=== PATIENT | male | born 1965 | race Caucasian/White ===

== ENCOUNTER 2018-02-27 12:51 | Emergency (ER) | payer BC ==
[~2018-02-27] VITALS: Ht 182.9 cm; Wt 120.0 kg
[~2018-02-27 12:51] MED LIST: LORT5TAB PO; Z.0.NO CURRENT MEDS
[2018-02-27 13:20] VITALS: BP 118/71; PULSE 97; RESP 17; TEMP 98.3; O2SAT 100
--- NOTE | 2018-02-27 14:49 | PD ---
HPI Chief Complaint: Fall Time Seen by Provider: 14:38 Travel History International Travel<30 days: No Contact w/Intl Traveler<30days: No Traveled to known affect area: No History of Present Illness HPI 52-year-old male presents emergency department status post fall from the lower rung of the ladder 4 days ago. He now complains of left ankle and knee pain. He complains of discomfort in the left shoulder as well, but has full motion of the left arm. Patient has difficulty bearing weight on the left leg secondary to pain mainly in the knee. He has been taking [id number] ibuprofen without improvement. He denies back pain, chest pain, abdominal pain , or thoracic pain. He denies hitting his head or loss of consciousness. He has no neck pain. Pain is currently 8 out of 10 and worse with movement in the left lower leg. Most pain localized to the knee. No known drug allergies. PFSH Past Medical History Hx Anticoagulant Therapy: Yes (Coumadin) Atrial Fibrillation: Yes Cardiovascular Problems: Yes (A.FIB) Gout: Yes Hypertension: Yes Respiratory: Yes (COPD) Tetanus Vaccination: Unknown Influenza Vaccination: No ?: Not Past Surgical History Surgical History: No Previous Surgery Social History Alcohol Use: Yes Tobacco Use: No Substance Use: No Allergies-Medications (Allergen,Severity, Reaction): Coded Allergies: No Known Allergies (Verified Allergy, Mild, 02/27/18) Reported Meds & Prescriptions Reported Meds & Active Scripts Active Hydrocodone-Acetaminophen 5-325 mg Tab 1 Tab PO Q6H PRN Lortab 5/500 (Acetaminophen/Hydrocodone Bitart) 5 Mg/500 Mg Tab 1 Tab PO QIDPRN FOR PAIN Reported No Current Meds (Miscellaneous Medication) Misc Review of Systems Except as stated in HPI: all other systems reviewed are Neg General / Constitutional: No: Fever Eyes: No: Visual changes HENT: No: Headaches Cardiovascular: No: Chest Pain or Discomfort Respiratory: No: Shortness of Breath Gastrointestinal: No: Abdominal Pain Genitourinary: No: Dysuria Musculoskeletal: Positive: Myalgias, Arthralgias, Limited ROM, Pain Skin: No Rash Neurologic: No: Weakness Psychiatric: No: Depression Endocrine: No: Polydipsia Hematologic/Lymphatic: No: Easy Bruising Physical Exam Narrative GENERAL: Patient appears in mild to moderate distress per SKIN: Warm and dry. Normal color. Normal turgor HEAD: Atraumatic. Normocephalic. EYES: Pupils equal and round. No scleral icterus. No injection or drainage. ENT: No nasal bleeding or discharge. Mucous membranes pink and moist. NECK: Trachea midline. No JVD. CARDIOVASCULAR: Regular rate and rhythm. RESPIRATORY: No accessory muscle use. Clear to auscultation. Breath sounds equal bilaterally. GASTROINTESTINAL: Abdomen soft, non-tender, nondistended. Hepatic and splenic margins not palpable. MUSCULOSKELETAL: Extremities without clubbing, cyanosis, or edema. No obvious deformities. Patient is obvious effusion to the left knee with limited range of motion secondary to pain. Patient also complains of pain in the left ankle which appears swollen as well. His pain is nonspecific in the ankle and knee. Exam however is limited secondary to patient's discomfort. Left shoulder has full range of motion without pain. NEUROLOGICAL: Awake and alert. No obvious cranial nerve deficits. Motor grossly within normal limits. Five out of 5 muscle strength in the arms and legs. Normal speech. PSYCHIATRIC: Appropriate mood and affect; insight and judgment normal. Data Data Last Documented VS Vital Signs Date Time Temp Pulse Resp B/P (MAP) Pulse Ox O2 Delivery O2 Flow Rate FiO2 02/27/18 13:20 98.3 97 17 118/71 (87) 100 Orders Orders Ankle, Complete ([id number]) (02/27/18 14:43) Knee, Complete (4vws) (02/27/18 14:43) Ice/Cold Pack (02/27/18 14:43) Splint Or Brace Apply/Monitor (02/27/18 15:50) Splint Or Brace Apply/Monitor (02/27/18 15:50) Crutches (02/27/18 15:50) Acetamin-Hydrocod 325-5 Mg ([place] 5-325 (02/27/18 16:00) MDM Medical Decision Making Medical Screen Exam Complete: Yes Emergency Medical Condition: Yes Differential Diagnosis Fall from ladder. Left ankle sprain. Left knee sprain. Possible fracture. Narrative Course Patient is medically stable. X-rays of the left ankle and knee are ordered. Patient is given Lortab 5/325 p.o. now per X-rays show no acute fracture of either the ankle or the knee, however there is swelling over the ankle and rather large effusion over the left knee. Patient will be placed in a knee immobilizer and ankle stirrup splint for comfort. He is given crutches for ambulation. Patient should ice both knee and ankle as much as possible. Recommend follow-up with Dr. Johnson if symptoms persist. Patient is given prescription for Lortab 5/325 1 every 6 hours as needed #12 . Diagnosis Primary Impression: Fall from ladder Qualified Codes: W11.XXXA - Fall on and from ladder, initial encounter Additional Impressions: Left knee sprain Qualified Codes: S83.92XA - Sprain of unspecified site of left knee, initial encounter Left ankle sprain Qualified Codes: S93.402A - Sprain of unspecified ligament of left ankle, initial encounter Referrals: Boyd Johnson MD Patient Instructions: Ankle Sprain (ED), Ankle Sprain Exercises (GEN), General Instructions, Knee Immobilizer (ED) Additional Instructions: X-rays show no acute fracture of either the ankle or the knee, however there is swelling over the ankle and rather large effusion over the left knee. Patient will be placed in a knee immobilizer and ankle stirrup splint for comfort. He is given crutches for ambulation. Patient should ice both knee and ankle as much as possible. Recommend follow-up with Dr. Johnson if symptoms persist. Patient is given prescription for Lortab 5/325 1 every 6 hours as needed #12 . Med/Other Pt SpecificInfo: Prescription(s) given Scripts Hydrocodone-Acetaminophen (Hydrocodone-Acetaminophen) 5-325 mg Tab 1 TAB PO Q6H Y for PAIN, #12 TAB 0 Refills Prov: Pilar Jain MD 02/27/18 Disposition: 01 DISCHARGE HOME Condition: Stable Mark Bradshaw February 27, 2018 14:49
--- NOTE | 2018-02-27 14:57 | PD ---
Physical Exam Date Seen by Provider: February 27, 2018 Narrative Patient presents for the evaluation of left knee injury. Data Data Last Documented VS Vital Signs Date Time Temp Pulse Resp B/P (MAP) Pulse Ox O2 Delivery O2 Flow Rate FiO2 02/27/18 13:20 98.3 97 17 118/71 (87) 100 Orders Orders Ankle, Complete ([id number]) (02/27/18 14:43) Knee, Complete (4vws) (02/27/18 14:43) Ice/Cold Pack (02/27/18 14:43) MDM Supervised Visit with LENA: Yes Narrative Course I, Dr. Jain, have reviewed the advance practice practitioner's documentation and am in agreement, met with the patient face to face, made the diagnosis, and the medical decision making was done by me. *My assessment and Findings: The patient does have a left knee effusion with associated tenderness. Please see Rm Bradshaw PA-C's note for results of laboratory and radiographic evaluation, ED course, final diagnosis and disposition Condition: Stable Pilar Jain MD February 27, 2018 14:57
--- NOTE | 2018-02-27 15:39 | RADRPT ---
EXAM DATE/TIME: 02/27/2018 15:03 [facility] COMPARISON: No previous studies available for comparison. INDICATIONS : Pt fell off ladder on Friday02/23/18 MEDICAL HISTORY : None. SURGICAL HISTORY : None. ENCOUNTER: Initial ACUITY: 4 - 6 days PAIN SCORE: 10/10 LOCATION: Left Knee FINDINGS: No acute fracture or dislocation. Mild osteoarthritis. Moderate-sized knee joint effusion. CONCLUSION: 1. No acute fracture. Moderate-sized knee joint effusion. Osbaldo Cooper MD on February 27, 2018 at 15:33 Board Certified Radiologist. This report was verified electronically.
--- NOTE | 2018-02-27 15:42 | RADRPT ---
EXAM DATE/TIME: 02/27/2018 15:14 [facility] COMPARISON: No previous studies available for comparison. INDICATIONS : Fell off a ladder on Friday02/23/18 MEDICAL HISTORY : None. SURGICAL HISTORY : None. ENCOUNTER: Initial ACUITY: 4 - 6 days PAIN SCORE: 0/10 LOCATION: Left Ankle FINDINGS: Three view exam was performed of the left ankle. The bony structures are in normal alignment. No ev idence of fracture, dislocation. The ankle mortise is intact. No radiopaque foreign bodies are seen. Bony mineralization is normal. CONCLUSION: 1. Soft tissue swelling. No acute bony abnormality. Osbaldo Cooper MD on February 27, 2018 at 15:37 Board Certified Radiologist. This report was verified electronically.
[2018-02-27] MEDS ORDERED: HYDR-3516 PO (15:53)
[2018-02-27] MEDS ORDERED: ACETAMINOPHEN/HYDROcodone 325 MG/5 MG TAB PO ONE (16:00)
== END 2018-02-27 17:09 | disposition home or self-care (01) ==
LOC: NEPD 12:51
DX: S83.92XA Sprain of unspecified site of left knee, initial encounter (principal); S93.402A Sprain of unspecified ligament of left ankle, initial encounter; W11.XXXA Fall on and from ladder, initial encounter
CPT/HCPCS: 73564; 73610; 99283; E0113; L1830; L1906

== ENCOUNTER 2018-09-15 17:17 | Inpatient (IN) ==
--- NOTE | 2018-09-15 20:37 | ED ---
HPI General Chief Complaint: Alcohol Stated Complaint: [place] Act Time Seen by Provider: 09/15/18 20:18 Source: patient and police Mode of arrival: ambulatory Limitations: no limitations History of Present Illness HPI narrative: 53-year-old male was brought in by Police Department for medical clearance from [facility]. Patient has history of alcohol abuse. Patient was March[place] acted and brought to [facility] recently after threatening family members. Patient was brought from [facility] to emergency room for medical clearance. Patient has history of atrial fibrillation and on Coumadin. Patient states that he has been taking his medications as directed except 2 days when he was in custodial recently. Patient states that his INR has been under control. Patient denies any headache. Patient denies any chest pain or shortness of breath. Patient denies abdominal pain. Patient denies any focal weakness or numbness of the extremity. Patient denies any agitation or alcohol withdrawal symptoms. Patient denies any illicit drug abuse. Patient states this alcohol drinks was several days ago. MD complaint: Reports medical clearance for detox facility Last Drank: Days (ago) Chronic alcohol use: Yes Recent trauma: No Associated symptoms: Reports denies other symptoms Treatments prior to arrival: Reports none Related Data Home Medications Medication Instructions Recorded Confirmed carvedilol [Coreg] 3.125 mg PO BID 09/15/18 09/16/18 diltiazem HCl 120 mg PO DAILY 09/15/18 09/16/18 warfarin [Coumadin] 0.3 mg/kg PO Q OTHER DAY 09/15/18 09/16/18 Allergies Allergy/AdvReac Type Severity Reaction Status Date / Time No Known Allergies Allergy Mild Uncoded 02/27/18 14:44 Review of Systems ROS: all other systems reviewed are negative PMFSH History History Provided By: Patient and Law Enforcement Medical History Medical History Afib (Acute) Alcohol abuse (Acute) Surgical History Surgical History No history of previous surgery (Acute) Family History Family History Other Family history normal Social History Social History Substance History: Active Abuse Second Hand Smoke Exposure: No Smoking Status: Never smoker How Often Do You Have a Drink Containing Alcohol: 2 to 4 times a month Recent Travel in [facility] within the Last 8 Weeks: No Recent Out of Country Travel within the Last 8 Weeks: No Exam Narrative Exam Narrative: GENERAL: Well-nourished, well-developed patient. SKIN: Focused skin assessment warm/dry. HEAD: Normocephalic. EYES: No scleral icterus. No injection or drainage. NECK: Supple, trachea midline. No JVD or lymphadenopathy. CARDIOVASCULAR: Regular rate and rhythm without murmurs, gallops, or rubs. RESPIRATORY: Breath sounds equal bilaterally. No accessory muscle use. GASTROINTESTINAL: Abdomen soft, non-tender, nondistended. MUSCULOSKELETAL: No cyanosis, or edema. BACK: Nontender without obvious deformity. No CVA tenderness. Neurologic exam normal. Course Initial Documented Vital Signs Temperature 98 F 09/15/18 17:27 Pulse Rate 100 H 09/15/18 17:27 Respiratory Rate 18 09/15/18 17:27 Blood Pressure 127/85 09/15/18 17:27 Pulse Oximetry 98 09/15/18 17:27 Last Documented Vital Signs Temperature 98 F 09/15/18 17:27 Pulse Rate 115 H 09/16/18 05:05 Respiratory Rate 16 09/16/18 05:05 Blood Pressure 105/56 L 09/16/18 05:05 Pulse Oximetry 98 09/16/18 05:05 Sign Out Sign Out Data: Patient Sign Out occurred on 09/16/18 at 01:36. Patient's care was discussed, and care was transferred from James Jackson to Monika Greene MD. Sign Out Comment: Patient is under exparte order. Psychiatric team contacted and will arrange for patient to go to detox facility. Patient need to be medically clear. Patient has history of A. fib with RVR. Patient has not had his dictation for the past several days. Coumadin, carvedilol, diltiazem IV will be given. Cardizem 10 mg IV given to control the A. fib with RVR. Last updated by James Jackson MD at 09/16/18 01:12 Post-Handoff Eval: The patient's case was checked out to me by Dr. Jackson at the conclusion of his shift. Please see his initial history and physical. The patient presented under an [facility] for court ordered detox. While awaiting evaluation and placement by the psychiatric screener patient became tachycardic. The patient has a history of atrial fibrillation. The patient's EKG revealed A. fib with RVR. The patient had missed his dose of Coumadin and his rate controlling medicines throughout the day today. During the course of the patient's emergency department visit, the patient was placed on a environmental monitoring specialist with oximetry and frequent blood pressure monitoring. The patient had IV access obtained and blood work sent for analysis. The patient was initially provided 10 mg of Cardizem was administered x1 and repeated x1 with minimal improvement in the patient's heart rate, Coreg 6.25 mg p.o. was administered, Coumadin 5 mg p.o. was given. As the patient continued to be in A. fib with RVR, Cardizem as a drip was started. The patient's diagnostic studies are remarkable for a white count of 7.2, hemoglobin 13.5, platelets 111 with 13.2 monocytes, PT 16.2, INR 1.6, PTT 31.7, chemistry is remarkable for a GFR of 80, glucose 111, total bilirubin 3.7, AST 80, alk phos 139, cardiac enzymes within normal limits, TSH within normal limits , alcohol level less than 3. The patient's case including history, pertinent physical examination findings, and laboratory studies were discussed with Dr. Carrasco. It was agreed that the patient would be admitted to the hospitalist service. The patient's results were discussed with the patient, including the plan of care. I explained that further testing and/ or monitoring is indicated based on the patient's history, examination, and/ or laboratory findings. Therefore, I recommended admission for additional evaluation. The patient expressed understanding and was agreeable with this plan. The patient was admitted to the hospital in guarded condition and sent to a bed under the care of the service. Medical Decision Making [facility] Narrative Medical decision making narrative: 53-year-old male with history of atrial fibrillation and alcohol dependence. Patient was sent here from [facility] for medical clearance. Patient has stable vital signs. No complaint. Patient is medically cleared. Medical Screen Exam Complete: Yes Emergency Medical Condition: Yes Lab Data Result diagrams: 09/16/18 04:50 09/16/18 04:50 Lab Results 09/15/18 09/15/18 09/15/18 Range/Units 21:15 21:15 21:15 WBC 7.2 (4.0-11.0) th/mm3 RBC 4.24 L (4.50-5.90) mil/mm3 Hgb 13.5 (13.0-17.0) gm/dL Hct 39.4 (39.0-51.0) % MCV 93.0 (80.0-100.0) fL MCH 31.9 (27.0-34.0) pg MCHC 34.3 (32.0-36.0) % RDW 16.0 (11.6-17.2) % Plt Count 111 L (150-450) th/mm3 MPV 8.6 (7.0-11.0) fL Neut % (Auto) 51.6 (16.0-70.0) % Lymph % (Auto) 32.0 (9.0-44.0) % [place] % (Auto) 13.2 H (0.0-8.0) % Eos % (Auto) 2.1 (0.0-4.0) % Baso % (Auto) 1.1 (0.0-2.0) % Neut # (Auto) 3.7 (1.8-7.7) th/mm3 Lymph # (Auto) 2.3 (1.0-4.8) th/mm3 [place] # (Auto) 0.9 (0.0-0.9) th/mm3 Eos # (Auto) 0.1 (0.0-0.4) th/mm3 Baso # (Auto) 0.1 (0.0-0.2) th/mm3 WBC Differential . Differential Comment Auto diff final PT 16.2 H (9.8-11.6) sec INR 1.6 Ratio APTT 31.7 (23.4-31.7) sec Sodium 138 (136-145) meq/L Potassium 4.3 (3.5-5.1) meq/L Chloride 107 (98-107) meq/L Carbon Dioxide 24.9 (21.0-32.0) meq/L Anion Gap 6 (5-15) meq/L BUN 12 (7-18) mg/dL Creatinine 0.98 (0.60-1.30) mg/dL Estimated GFR 80 L (>89) mL/min Random Glucose 111 H (74-106) mg/dL Calcium 8.8 (8.5-10.1) mg/dL Magnesium 1.6 (1.5-2.5) mg/dL Total Bilirubin 3.7 H (0.2-1.0) mg/dL AST 80 H (15-37) U/L ALT 41 (12-78) U/L Alkaline Phosphatase 139 H (45-117) U/L Total Creatine Kinase (39-308) U/L CK-MB (CK-2) (0.5-3.6) ng/mL Troponin I (0.02-0.05) ng/mL B-Natriuretic Peptide (0-100) pg/mL Total Protein 8.2 (6.4-8.2) g/dL Albumin 3.0 L (3.4-5.0) g/dL TSH 3.320 (0.358-3.740) uIU/mL Serum Alcohol Less than 3 (0-5) mg/dL 09/16/18 09/16/18 09/16/18 Range/Units 04:50 04:50 04:50 WBC 6.3 (4.0-11.0) th/mm3 RBC 4.14 L (4.50-5.90) mil/mm3 Hgb 13.3 (13.0-17.0) gm/dL Hct 38.3 L (39.0-51.0) % MCV 92.6 (80.0-100.0) fL MCH 32.1 (27.0-34.0) pg MCHC 34.7 (32.0-36.0) % RDW 15.7 (11.6-17.2) % Plt Count 104 L (150-450) th/mm3 MPV 9.5 (7.0-11.0) fL Neut % (Auto) 48.2 (16.0-70.0) % Lymph % (Auto) 38.4 (9.0-44.0) % [place] % (Auto) 10.5 H (0.0-8.0) % Eos % (Auto) 2.2 (0.0-4.0) % Baso % (Auto) 0.7 (0.0-2.0) % Neut # (Auto) 3.0 (1.8-7.7) th/mm3 Lymph # (Auto) 2.4 (1.0-4.8) th/mm3 [place] # (Auto) 0.7 (0.0-0.9) th/mm3 Eos # (Auto) 0.1 (0.0-0.4) th/mm3 Baso # (Auto) 0.0 (0.0-0.2) th/mm3 WBC Differential . Differential Comment Auto diff final PT (9.8-11.6) sec INR Ratio APTT (23.4-31.7) sec Sodium 140 (136-145) meq/L Potassium 3.8 (3.5-5.1) meq/L Chloride 106 (98-107) meq/L Carbon Dioxide 24.8 (21.0-32.0) meq/L Anion Gap 9 (5-15) meq/L BUN 11 (7-18) mg/dL Creatinine 0.89 (0.60-1.30) mg/dL Estimated GFR 89 (>89) mL/min Random Glucose 86 (74-106) mg/dL Calcium 8.9 (8.5-10.1) mg/dL Magnesium (1.5-2.5) mg/dL Total Bilirubin 3.6 H (0.2-1.0) mg/dL AST 74 H (15-37) U/L ALT 37 (12-78) U/L Alkaline Phosphatase 128 H (45-117) U/L Total Creatine Kinase 307 (39-308) U/L CK-MB (CK-2) 7.9 H (0.5-3.6) ng/mL Troponin I Less than 0.02 L (0.02-0.05) ng/mL B-Natriuretic Peptide 173 H (0-100) pg/mL Total Protein 8.0 (6.4-8.2) g/dL Albumin 2.8 L (3.4-5.0) g/dL TSH (0.358-3.740) uIU/mL Serum Alcohol (0-5) mg/dL Discharge Plan Discharge Disposition Patient Disposition: 30 Still Patient Discharge Details Diagnosis: Encounter for medical clearance for patient hold, Atrial fibrillation with RVR Physicians Team ED Provider: Monika Greene Primary Care Provider: Estela Preciado Attending Provider: Diogenes Esparza Discharge Interventions Interventions: Vital Signs Last Done: 09/16/18 00:50 Status ED Status: Admitted Patient
[2018-09-15 21:25] LABS: Baso # (Auto) 0.1 th/mm3 (0.0-0.2); Baso % (Auto) 1.1 % (0.0-2.0); Eos # (Auto) 0.1 th/mm3 (0.0-0.4); Eos % (Auto) 2.1 % (0.0-4.0); Hematocrit 39.4 % (39.0-51.0); Hemoglobin 13.5 gm/dL (13.0-17.0); Lymph # (Auto) 2.3 th/mm3 (1.0-4.8); Mean Corpuscular HGB Conc 34.3 % (32.0-36.0); Mean Corpuscular Hemoglobin 31.9 pg (27.0-34.0); Mean Platelet Volume 8.6 fL (7.0-11.0); Mono # (Auto) 0.9 th/mm3 (0.0-0.9); Mono % (Auto) 13.2 % (0.0-8.0); Neut # (Auto) 3.7 th/mm3 (1.8-7.7); Neut % (Auto) 51.6 % (16.0-70.0); Platelet Count 111 th/mm3 (150-450); Red Blood Count 4.24 mil/mm3 (4.50-5.90); White Blood Count 7.2 th/mm3 (4.0-11.0)
[2018-09-15 21:36] LABS: Activated Partial Thrombo Time 31.7 sec (23.4-31.7); INR 1.6 Ratio; Prothrombin Time 16.2 sec (9.8-11.6)
[2018-09-15 21:39] LABS: Alanine Aminotransferase 41 U/L (12-78); Anion Gap 6 meq/L (5-15); Aspartate Aminotransferase 80 U/L (15-37); Blood Urea Nitrogen 12 mg/dL (7-18); Calcium 8.8 mg/dL (8.5-10.1); Carbon Dioxide 24.9 meq/L (21.0-32.0); Chloride 107 meq/L (98-107); Glomerular Filtration Rate 80 mL/min (>89); Glucose,Random 111 mg/dL (74-106); Magnesium 1.6 mg/dL (1.5-2.5); Potassium 4.3 meq/L (3.5-5.1); Sodium 138 meq/L (136-145)
[2018-09-15 21:48] LABS: Alkaline Phosphatase 139 U/L (45-117); Total Protein 8.2 g/dL (6.4-8.2)
[2018-09-16] MEDS ORDERED: Carvedilol 6.25 MG Tablet PO ONE (01:40)
[2018-09-16] MEDS ORDERED: dilTIAZem Inj 125 MG in Sodium Chlor 0.9% Inj 100 ML IV.CONT PRN (03:26)
[2018-09-16] MEDS ORDERED: LORazepam 1 MG Tablet PO PRN (03:46)
[2018-09-16] MEDS ORDERED: Haloperidol Inj 5 MG/ML Ampul IV.PUSH PRN (03:46)
[2018-09-16] MEDS ORDERED: Warfarin Consult Pharmacy OTHER PRN (03:50)
--- NOTE | 2018-09-16 04:12 | P.HP ---
History of Present Illness Service: [facility] Primary Care Physician: Estela Preciado MD History of Present Illness: 53 yo male with a PMH significant for atrial fibrillation anticoagulated on Coumadin and alcohol abuse presents to the emergency department for medical clearance. The patient is under ex parte for detoxification and was brought to [place] for medical clearance from [facility]. The patient is noted to be in atrial fibrillation with rapid ventricular response. He reports he last took his full dose of medications on Friday. He is on diltiazem and Coreg. He endorses heart palpitations. Denies any chest pain. No shortness of breath. No fever/chills. No abdominal pain. No nausea/vomiting/diarrhea. No focal neurologic deficits. Inpatient Certification: I certify that the inpatient services were ordered in accordance with Medicare regulations governing the order. This includes certification that hospital inpatient services are reasonable and necessary and in the case of services not specified as inpatient-only under 42 CFR 419.22(n), that they are appropriately provided as inpatient services in accordance to with the 2-midnight benchmark under 43 CFR 412.3(e) Estimated Total Length of Stay (Days): 2 Plans for Post Hospital Care: Home Review of Systems All other systems reviewed negative except as stated in [facility] - History History Provided By: Patient, Law Enforcement - Medical History Medical History: Medical History (Last Updated 09/16/18 @ 04:05 by Melissa Carrasco MD) Afib Alcohol abuse - Surgical History Surgical History: Surgical History (Last Updated 09/16/18 @ 04:05 by Melissa Carrasco MD) No history of previous surgery - Family History Family History: Family History (Last Updated 09/16/18 @ 04:06 by Melissa Carrasco MD) Other Family history normal - Social History I have reviewed the patient's Social History: Yes - Tobacco History Second Hand Smoke Exposure: No Smoking Status: Never smoker - Alcohol History How Often Do You Have a Drink Containing Alcohol: 2 to 4 times a month - Substance Use History Substance History: Active Abuse - Substance Use Type Alcohol Status: Active - Travel History Recent Travel in the [place] Within the Last 8 Weeks: No Recent Travel Out of the Country Within the Last 8 Weeks: No - Immunization History Tetanus Immunization: Unsure Medications and Allergies Active Medications: Active Medications Carvedilol (Coreg) 3.125 mg PO BID [facility] Diltiazem HCl (Cardizem Cd 24hr) 120 mg PO DAILY [facility] Famotidine (Pepcid) 20 mg PO BID [facility] Flumazenil (Romazecon Inj) 0.2 mg IV.PUSH Q1M PRN PRN Reason: OVERSEDATION Folic Acid (Folic Acid) 1 mg PO DAILY [facility] Stop: 09/21/18 08:59 Haloperidol Lactate (Haldol Inj) 1 mg IV.PUSH Q15M PRN PRN Reason: for severe agitation Diltiazem HCl 125 mg/ Sodium (Chloride) 125 mls @ 5 mls/hr IV.CONT TITRATE PRN ; Protocol PRN Reason: Per Protocol Sodium Chloride (Ns Inj) 1,000 mls @ 100 mls/hr IV.CONT .Q10H [facility] Lorazepam (Ativan) 1 mg PO Q4H PRN PRN Reason: for CIWA 8-10 Lorazepam (Ativan Inj) 2 mg IV.PUSH Q2H PRN PRN Reason: for CIWA 11-14 Lorazepam (Ativan Inj) 2 mg IV.PUSH Q1H PRN PRN Reason: for CIWA 15-20 Lorazepam (Ativan Inj) 2 mg IV.PUSH Q15M PRN PRN Reason: for CIWA > 20 Lorazepam (Ativan Inj) 1 mg IV.PUSH Q4H PRN PRN Reason: for CIWA 8-10 Lorazepam (Ativan) 2 mg PO Q2H PRN PRN Reason: for CIWA 11-14 Multivitamins/Minerals (Theragran-M) 1 tab PO DAILY [facility] Stop: 09/21/18 08:59 Pharmacy Profile Note (Coumadin Consult Pharmacy) 1 each OTHER UNSCH PRN PRN Reason: PHARMACY DOCUMENTATION Thiamine HCl (Vitamin B1) 100 mg PO DAILY [facility] Allergies Allergy/AdvReac Type Severity Reaction Status Date / Time No Known Allergies Allergy Mild Uncoded 02/27/18 14:44 Home Medications Medication Instructions Recorded Confirmed Type carvedilol [Coreg] 3.125 mg PO BID 09/15/18 09/16/18 History diltiazem HCl 120 mg PO DAILY 09/15/18 09/16/18 History warfarin [Coumadin] 0.3 mg/kg PO Q OTHER DAY 09/15/18 09/16/18 History Exam Vital signs: Vital Signs 09/15/18 17:27 09/15/18 20:29 09/16/18 00:50 Temperature 98 F Pulse Rate 100 H 140 H 151 H Respiratory Rate 18 18 22 Blood Pressure 127/85 117/78 150/84 H Pulse Oximetry 98 100 97 Intake & Output 09/15/18 09/15/18 09/16/18 06:59 18:59 06:59 Weight 105.687 kg Narrative: Gen.: No acute distress Head: Normocephalic. Atraumatic. EENT: Pupils equal round and reactive to light. Nose without drainage. Airway intact. Throat without injection. Cardiovascular: Tachycardic. Irregularly irregular rhythm. No murmurs, rubs or gallops. Respiratory: Lungs clear to auscultation bilaterally. No wheezes or rhonchi. Abdomen: Soft, nontender, nondistended. No peritoneal signs. Musculoskeletal: No gross deformities. No edema. Skin: No obvious rashes or erythema. Neuro: Sensory and motor grossly intact. Cranial nerves II through XII grossly intact. Results - Labs CBC & Chem 7: 09/15/18 21:15 09/15/18 21:15 Labs: Laboratory Results - last 24 hr 09/15/18 09/15/18 09/15/18 21:15 21:15 21:15 WBC 7.2 RBC 4.24 L Hgb 13.5 Hct 39.4 MCV 93.0 MCH 31.9 MCHC 34.3 RDW 16.0 Plt Count 111 L MPV 8.6 Neut % (Auto) 51.6 Lymph % (Auto) 32.0 [place] % (Auto) 13.2 H Eos % (Auto) 2.1 Baso % (Auto) 1.1 Neut # (Auto) 3.7 Lymph # (Auto) 2.3 [place] # (Auto) 0.9 Eos # (Auto) 0.1 Baso # (Auto) 0.1 WBC Differential . Differential Comment Auto diff final PT 16.2 H INR 1.6 APTT 31.7 Sodium 138 Potassium 4.3 Chloride 107 Carbon Dioxide 24.9 Anion Gap 6 BUN 12 Creatinine 0.98 Estimated GFR 80 L Random Glucose 111 H Calcium 8.8 Magnesium 1.6 Total Bilirubin 3.7 H AST 80 H ALT 41 Alkaline Phosphatase 139 H Total Protein 8.2 Albumin 3.0 L TSH 3.320 Serum Alcohol Less than 3 Caprini VTE Risk Assessment Caprini VTE Risk Assessment: Moderate/High Risk (score >= 2) Caprini Risk Assessment Model: Point Value = 1 Point Value = 2 Point Value = 3 Point Value = 5 Age 41-60 Minor surgery BMI > 25 kg/m2 Swollen legs Varicose veins or History of unexplained or recurrent spontaneous Oral contraceptives or hormone replacement Sepsis (< 1 month) Serious lung disease, including pneumonia (< 1 month) Abnormal pulmonary function Acute myocardial infarction Congestive heart failure (< 1 month) History of inflammatory bowel disease Medical patient at bed rest Age 61-74 Arthroscopic surgery Major open surgery (> 45 min) Laparoscopic surgery (> 45 min) Malignancy Confined to bed (> 72 hours) Immobilizing plaster cast Central venous access Age >= 75 History of VTE Family history of VTE Factor V Leiden Prothrombin [id number] Lupus anticoagulant Anticardiolipin antibodies Elevated serum homocysteine Heparin-induced thrombocytopenia Other congenital or acquired thrombophilia Stroke (< 1 month) Elective arthroplasty Hip, pelvis, or leg fracture Acute spinal cord injury (< 1 month) Prophylaxis Regimen: Total Risk Factor Score Risk Level Prophylaxis Regimen 0-1 Low Early ambulation 2 Moderate Order ONE of the following: *Sequential Compression Device (SCD) *Heparin 5000 units SQ BID 3-4 Higher Order ONE of the following medications: *Heparin 5000 units SQ TID *Enoxaparin/Lovenox 40 mg SQ daily (WT < 150 kg, CrCl > 30 mL/min) *Enoxaparin/Lovenox 30 mg SQ daily (WT < 150 kg, CrCl > 10-29 mL/min) *Enoxaparin/Lovenox 30 mg SQ BID (WT < 150 kg, CrCl > 30 mL/min) AND/OR *Sequential Compression Device (SCD) 5 or more Highest Order ONE of the following medications: *Heparin 5000 units SQ TID (Preferred with Epidurals) *Enoxaparin/Lovenox 40 mg SQ daily (WT < 150 kg, CrCl > 30 mL/min) *Enoxaparin/Lovenox 30 mg SQ daily (WT < 150 kg, CrCl > 10-29 mL/min) *Enoxaparin/Lovenox 30 mg SQ BID (WT < 150 kg, CrCl > 30 mL/min) AND *Sequential Compression Device (SCD) Assessment and Plan - Plan Assessment/plan: 1. Atrial fibrillation with rapid ventricular response EKG significant for A. fib with RVR, no ST segment elevations or depressions, personally reviewed Diltiazem bolus and drip Resume home p.o. medications Wean drip as tolerated Patient anticoagulated on Coumadin, INR subtherapeutic at 1.6 Home warfarin Pharmacy consulted to assist with warfarin dosing 2. Alcohol abuse Patient states he drinks approximately 4 drinks of alcohol. Last drink was on Friday Alcohol level 3 [facility] protocol Monitor for signs of withdrawal 3. Ex Parte Case management consulted to assist with discharge to [facility] FEN: Cardiac diet Electrolytes: Monitor and replete as needed Coumadin
[2018-09-16] MEDS: Sod Chloride 0.9% Inj 1,000 ML IV.CONT SCH ×3 (04:34→23:35)
[2018-09-16 05:09] LABS: Baso % (Auto) 0.7 % (0.0-2.0); Eos # (Auto) 0.1 th/mm3 (0.0-0.4); Eos % (Auto) 2.2 % (0.0-4.0); Hematocrit 38.3 % (39.0-51.0); Hemoglobin 13.3 gm/dL (13.0-17.0); Lymph # (Auto) 2.4 th/mm3 (1.0-4.8); Lymph % (Auto) 38.4 % (9.0-44.0); Mean Corpuscular HGB Conc 34.7 % (32.0-36.0); Mean Corpuscular Hemoglobin 32.1 pg (27.0-34.0); Mean Corpuscular Volume 92.6 fL (80.0-100.0); Mean Platelet Volume 9.5 fL (7.0-11.0); Mono # (Auto) 0.7 th/mm3 (0.0-0.9); Mono % (Auto) 10.5 % (0.0-8.0); Neut % (Auto) 48.2 % (16.0-70.0); Platelet Count 104 th/mm3 (150-450); Red Blood Count 4.14 mil/mm3 (4.50-5.90); Red Cell Distribution Width 15.7 % (11.6-17.2); White Blood Count 6.3 th/mm3 (4.0-11.0)
[2018-09-16 05:24] LABS: Alanine Aminotransferase 37 U/L (12-78); Albumin 2.8 g/dL (3.4-5.0); Anion Gap 9 meq/L (5-15); Aspartate Aminotransferase 74 U/L (15-37); Blood Urea Nitrogen 11 mg/dL (7-18); Calcium 8.9 mg/dL (8.5-10.1); Carbon Dioxide 24.8 meq/L (21.0-32.0); Chloride 106 meq/L (98-107); Glomerular Filtration Rate 89 mL/min (>89); Glucose,Random 86 mg/dL (74-106); Potassium 3.8 meq/L (3.5-5.1); Sodium 140 meq/L (136-145)
[2018-09-16 05:28] LABS: Alkaline Phosphatase 128 U/L (45-117); Creatine Kinase 307 U/L (39-308)
[2018-09-16 05:41] LABS: Creatine Kinase MB 7.9 ng/mL (0.5-3.6)
[2018-09-16 09:28] LABS: INR 1.6 Ratio; Prothrombin Time 16.1 sec (9.8-11.6)
[2018-09-16] MEDS: Folic Acid 1 MG Tablet PO SCH (09:45)
[2018-09-16] MEDS: dilTIAZem CD 120 MG Capsule PO SCH (09:45)
[2018-09-16] MEDS: Famotidine 20 MG Tablet PO SCH ×2 (09:45→23:12)
[2018-09-16] MEDS: Multivitamin/Minerals Therapeutic Tablet PO SCH (09:45)
--- NOTE | 2018-09-16 09:47 | ECG ---
Date Performed: 09/16/2018 Time Performed: 00:55:02 PTAGE: 53 years EKG: ATRIAL FIBRILLATION WITH RAPID VENTRICULAR RESPONSE ABNORMAL RHYTHM ECG NO PREVIOUS TRACING DOCTOR: Elliott Vásquez Interpretating Date/Time 09/16/2018 09:45:32
--- NOTE | 2018-09-16 10:47 | P.PNIM ---
Subjective Interval history: 53 yo male with a PMH significant for atrial fibrillation anticoagulated on Coumadin and alcohol abuse presents to the emergency department for medical clearance. The patient is under ex parte for detoxification and was brought to [place] for medical clearance from [facility]. The patient is noted to be in atrial fibrillation with rapid ventricular response. He reports he last took his full dose of medications on Friday. He is on diltiazem and Coreg. He endorses heart palpitations. Denies any chest pain. No shortness of breath. No fever/chills. No abdominal pain. No nausea/vomiting/diarrhea. No focal neurologic deficits. PATIENT REMAINS IN AFIB ON CARDIZEM DRIP TRY TO WEAN OFF CARDIZEM DRIP PATIENT STATES HAS NOT HAD HIS MEDICATIONS SINCE LAST FRIDAY HAS HX OF AFIB AND ALCOHOL ABUSE AM LABS CIWA PROTOCOLS DW RN AND PT Physical Exam Vital signs: Vital Signs 09/15/18 17:27 09/15/18 20:29 09/16/18 00:50 Temperature 98 F Pulse Rate 100 H 140 H 151 H Respiratory Rate 18 18 22 Blood Pressure 127/85 117/78 150/84 H Pulse Oximetry 98 100 97 09/16/18 05:05 09/16/18 09:49 09/16/18 09:51 Temperature Pulse Rate 115 H 100 H 100 H Respiratory Rate 16 18 Blood Pressure 105/56 L 110/66 Pulse Oximetry 98 97 Intake & Output 09/15/18 09/16/18 09/16/18 18:59 06:59 18:59 Intake Total 120 / 120 Balance 120 / 120 Weight 105.687 kg Intake: Oral 120 / 120 Narrative: GENERAL: Awake alert and oriented x3 appears to be in no acute distress SKIN: Warm and dry. HEAD: Atraumatic. Normocephalic. EYES: Pupils equal and round. No scleral icterus. No injection or drainage. EOMI ENT: No nasal bleeding or discharge. Mucous membranes pink and moist. Tongue is midline NECK: Trachea midline. No JVD. Supple CARDIOVASCULAR: IRRegular rate and rhythm. S1-S2 no S3 or S4 no heave or thrill or rub or gallop remains on Cardizem drip RESPIRATORY: No accessory muscle use. Clear to auscultation. Breath sounds equal bilaterally. GASTROINTESTINAL: Abdomen soft, non-tender, nondistended. Hepatic and splenic margins not palpable. Mild obese MUSCULOSKELETAL: Extremities without clubbing, cyanosis, or edema. No obvious deformities. NEUROLOGICAL: Awake and alert. No obvious cranial nerve deficits. Motor grossly within normal limits. Five out of 5 muscle strength in the arms and legs. Normal speech. PSYCHIATRIC: Appropriate mood and affect; insight and judgment normal. Results - Labs CBC & Chem 7: 09/16/18 04:50 09/16/18 04:50 Laboratory Results - last 24 hr 09/15/18 09/15/18 09/15/18 21:15 21:15 21:15 WBC 7.2 RBC 4.24 L Hgb 13.5 Hct 39.4 MCV 93.0 MCH 31.9 MCHC 34.3 RDW 16.0 Plt Count 111 L MPV 8.6 Neut % (Auto) 51.6 Lymph % (Auto) 32.0 [place] % (Auto) 13.2 H Eos % (Auto) 2.1 Baso % (Auto) 1.1 Neut # (Auto) 3.7 Lymph # (Auto) 2.3 [place] # (Auto) 0.9 Eos # (Auto) 0.1 Baso # (Auto) 0.1 WBC Differential . Differential Comment Auto diff final PT 16.2 H INR 1.6 APTT 31.7 Sodium 138 Potassium 4.3 Chloride 107 Carbon Dioxide 24.9 Anion Gap 6 BUN 12 Creatinine 0.98 Estimated GFR 80 L Random Glucose 111 H Calcium 8.8 Magnesium 1.6 Total Bilirubin 3.7 H AST 80 H ALT 41 Alkaline Phosphatase 139 H Total Creatine Kinase CK-MB (CK-2) Troponin I B-Natriuretic Peptide Total Protein 8.2 Albumin 3.0 L TSH 3.320 Serum Alcohol Less than 3 09/16/18 09/16/18 09/16/18 04:50 04:50 04:50 WBC 6.3 RBC 4.14 L Hgb 13.3 Hct 38.3 L MCV 92.6 MCH 32.1 MCHC 34.7 RDW 15.7 Plt Count 104 L MPV 9.5 Neut % (Auto) 48.2 Lymph % (Auto) 38.4 [place] % (Auto) 10.5 H Eos % (Auto) 2.2 Baso % (Auto) 0.7 Neut # (Auto) 3.0 Lymph # (Auto) 2.4 [place] # (Auto) 0.7 Eos # (Auto) 0.1 Baso # (Auto) 0.0 WBC Differential . Differential Comment Auto diff final PT INR APTT Sodium 140 Potassium 3.8 Chloride 106 Carbon Dioxide 24.8 Anion Gap 9 BUN 11 Creatinine 0.89 Estimated GFR 89 Random Glucose 86 Calcium 8.9 Magnesium Total Bilirubin 3.6 H AST 74 H ALT 37 Alkaline Phosphatase 128 H Total Creatine Kinase 307 CK-MB (CK-2) 7.9 H Troponin I Less than 0.02 L B-Natriuretic Peptide 173 H Total Protein 8.0 Albumin 2.8 L TSH Serum Alcohol 09/16/18 09:06 WBC RBC Hgb Hct MCV MCH MCHC RDW Plt Count MPV Neut % (Auto) Lymph % (Auto) [place]ron % (Auto) Eos % (Auto) Baso % (Auto) Neut # (Auto) Lymph # (Auto) [place] # (Auto) Eos # (Auto) Baso # (Auto) WBC Differential Differential Comment PT 16.1 H INR 1.6 APTT Sodium Potassium Chloride Carbon Dioxide Anion Gap BUN Creatinine Estimated GFR Random Glucose Calcium Magnesium Total Bilirubin AST ALT Alkaline Phosphatase Total Creatine Kinase CK-MB (CK-2) Troponin I B-Natriuretic Peptide Total Protein Albumin TSH Serum Alcohol Assessment and Plan - Plan 1. Atrial fibrillation with rapid ventricular response EKG significant for A. fib with RVR, no ST segment elevations or depressions, personally reviewed Diltiazem bolus and drip Resume home p.o. medications Wean drip as tolerated Patient anticoagulated on Coumadin, INR subtherapeutic at 1.6 Home warfarin Pharmacy consulted to assist with warfarin dosing 2. Alcohol abuse Patient states he drinks approximately 4 drinks of alcohol. Last drink was on Friday Alcohol level 3 [facility] protocol Monitor for signs of withdrawal Multivitamin, thiamine and folic acid 3. Ex Parte Case management consulted to assist with discharge to [facility] DVT and GI prophylaxis Continue on Lovenox since he is subtherapeutic on his INR GI prophylaxis with Pepcid FEN: Cardiac diet Electrolytes: Monitor and replete as needed Coumadin A.m. labs Reload Coumadin Discussed with patient and RN Try to wean off Cardizem drip Code Status: Full code Discussed Condition With: RN and patient Discharge Planning: Pending Cardizem drip under control and clearance by all
[2018-09-16] MEDS: Enoxaparin Inj 120 MG/0.8 ML Syringe SQ SCH ×2 (16:27→23:12)
[2018-09-16 17:09] LABS: Amphetamine Screen,Urine Neg (Neg); Barbiturate Screen,Urine Neg (Neg); Cannabinoid Screen,Urine Neg (Neg); Cocaine Screen,Urine Neg (Neg)
[2018-09-16 17:11] LABS: Opiate Screen,Urine Neg (Neg)
--- NOTE | 2018-09-16 17:23 | ECHRPT ---
Indication: A-FIB CONCLUSIONS . Normal left ventricular size. Wall thickness is normal. No regional wall motion abnormalities are present. The pulmonary valve is not well visualized. The left ventricular systolic function is normal with an estimated ejection fraction in the range of 60-65%. . BP: / HR: Rhythm: Atrial fibrillation MEASUREMENTS (Male / Female) Normal Values Technical Quality:Fair 2D ECHO LV Diastolic Diameter PLAX 4.6 cm 4.2 - 5.9 / 3.9 - 5.3 cm LV Systolic Diameter PLAX 3.1 cm IVS Diastolic Thickness 1.0 cm 0.6 - 1.0 / 0.6 - 0.9 cm LVPW Diastolic Thickness 1.0 cm 0.6 - 1.0 / 0.6 - 0.9 cm LV Relative Wall Thickness 0.4 LVOT Diameter 2.2 cm LA Systolic Diameter LX 4.1 cm 3.0 - 4.0 / 2.7 - 3.8 cm M-MODE Aortic Root Diameter MM 2.5 cm LA Systolic Diameter MM 4.0 cm LA Ao Ratio MM 1.6 AV Cusp Separation MM 2.6 cm DOPPLER AV Peak Velocity 119.0 cm/s AV Peak Gradient 5.7 mmHg LVOT Peak Velocity 84.9 cm/s LVOT Peak Gradient 2.9 mmHg AV Area Cont Eq pk 2.7 cm MV Area PHT 4.8 cm LV E' Lateral Velocity 9.7 cm/s LV E' Septal Velocity 10.5 cm/s PV Peak Velocity 92.3 cm/s PV Peak Gradient 3.4 mmHg FINDINGS LEFT VENTRICLE The left ventricular systolic function is normal with an estimated ejection fraction in the range of 60-65%. . Normal left ventricular size. Wall thickness is normal. No regional wall motion abnormalities are present. RIGHT VENTRICLE Normal right ventricular size and systolic function. LEFT ATRIUM The left atrial size is normal. RIGHT ATRIUM The right atrial size is normal. ATRIAL SEPTUM Normal atrial septal thickness without atrial level shunting by limited color doppler interrogation. AORTA The aortic root and proximal ascending aorta are normal in size on limited imaging. MITRAL VALVE Structurally normal mitral valve. No mitral valve stenosis or regurgitation. AORTIC VALVE Trileaflet aortic valve. No aortic valve stenosis or regurgitation. TRICUSPID VALVE Structurally normal tricuspid valve. No tricuspid valve stenosis or regurgitation. PULMONARY VALVE The pulmonary valve is not well visualized. VESSELS The inferior vena cava is normal in size. PERICARDIUM No pericardial effusion. Elliott Vásquez MD, FACC (Electronically Signed) Final Date:16 September 2018 17:23
[2018-09-17 06:27] LABS: INR 1.7 Ratio; Prothrombin Time 17.5 sec (9.8-11.6)
[2018-09-17 06:43] LABS: Albumin 2.6 g/dL (3.4-5.0); Anion Gap 11 meq/L (5-15); Blood Urea Nitrogen 15 mg/dL (7-18); Calcium 8.6 mg/dL (8.5-10.1); Carbon Dioxide 21.9 meq/L (21.0-32.0); Chloride 108 meq/L (98-107); Glucose,Random 84 mg/dL (74-106); Magnesium 1.6 mg/dL (1.5-2.5); Potassium 3.9 meq/L (3.5-5.1); Sodium 141 meq/L (136-145)
[2018-09-17 06:51] LABS: Alanine Aminotransferase 31 U/L (12-78); Alkaline Phosphatase 122 U/L (45-117); Aspartate Aminotransferase 58 U/L (15-37); Free T4 (Free Thyroxine) 1.29 ng/dL (0.76-1.46); Glomerular Filtration Rate 88 mL/min (>89); Phosphorus 4.7 mg/dL (2.5-4.9)
[2018-09-17] MEDS: dilTIAZem CD 120 MG Capsule PO SCH (10:18)
[2018-09-17] MEDS: Famotidine 20 MG Tablet PO SCH (10:19)
[2018-09-17] MEDS: Multivitamin/Minerals Therapeutic Tablet PO SCH (10:19)
[2018-09-17] MEDS: Enoxaparin Inj 120 MG/0.8 ML Syringe SQ SCH (10:19)
[2018-09-17] MEDS: Folic Acid 1 MG Tablet PO SCH (10:19)
[2018-09-17] MEDS ORDERED: Metoprolol Tartrate 25 MG Tablet PO ONE (12:30)
[2018-09-17 14:36] VITALS: BP 124/68; PULSE 98; RESP 18; TEMP 98.6; O2SAT 99
--- NOTE | 2018-09-17 15:08 | P.DS ---
Date of admission: 09/16/18 03:42 Primary care physician: Estela Preciado MD Attending physician on discharge: Katelyn Roca Anticipated date of discharge: 09/17/18 Brief History from admission: 53 yo male with a PMH significant for atrial fibrillation anticoagulated on Coumadin and alcohol abuse presents to the emergency department for medical clearance. The patient is under ex parte for detoxification and was brought to [place] for medical clearance from [facility]. The patient is noted to be in atrial fibrillation with rapid ventricular response. He reports he last took his full dose of medications on Friday. He is on diltiazem and Coreg. He endorses heart palpitations. Denies any chest pain. No shortness of breath. No fever/chills. No abdominal pain. No nausea/vomiting/diarrhea. No focal neurologic deficits. Patient update on day of discharge: Patient is doing well. No acute concerns. No CP, SOB, fever, chills. DS: Medications - Discharge Medications Prescriptions: metoprolol tartrate 50 mg PO BID #60 tab DS: Summary Hospital Course: 53 yo male with a PMH significant for atrial fibrillation anticoagulated on Coumadin and alcohol abuse presents to the emergency department for medical clearance. The patient is under ex parte for detoxification and was brought to [place] for medical clearance from [facility]. The patient is noted to be in atrial fibrillation with rapid ventricular response. Patient was started on Cardizem drip. He was also started on his home medication Cardizem CD as well as carvedilol. His heart rate remained in the 110-120 range. We switched his carvedilol to metoprolol which improved his heart rate. Patient remained in hemodynamically stable condition. He was ablating well and tolerated diet well. Per case management note from 09/16/2018 at 11:33 AM, case management discussed with Corina at [facility] and was told that patient is able to be released upon medical clearance. At this point patient is hemodynamically stable. His heart rate is controlled. He can be discharged home with follow- up with his primary care physician as well as a travel rn or. Patient verbalized understanding. We switched patient's carvedilol to metoprolol for better rate control. Patient was advised to check his heart rate. If heart rate remains low in the range of 60s, he is advised to cut metoprolol to 25 mg twice daily. Patient verbalized understanding. He will follow-up with Dr. Naylor. - Time Spent with Patient Total time spent providing and/or coordinating discharge services: Less than 30 minutes - Quality: VTE Deep Vein Thrombosis/Pulmonary Embolism Present on Admission: No Exam Vital signs: Vital Signs 09/16/18 18:20 09/16/18 20:00 09/16/18 20:05 Temperature 99.3 F 98.5 F Pulse Rate 107 H 72 78 Respiratory Rate 18 17 Blood Pressure 114/66 109/62 Pulse Oximetry 96 100 09/16/18 23:10 09/16/18 23:52 09/17/18 03:45 Temperature 98.6 F Pulse Rate 97 H 91 H 102 H Respiratory Rate 18 Blood Pressure 115/62 Pulse Oximetry 99 09/17/18 04:00 09/17/18 08:00 09/17/18 12:00 Temperature 98.5 F 99.4 F 98.6 F Pulse Rate 106 H 118 H 98 H Respiratory Rate 16 16 18 Blood Pressure 115/56 L 140/70 124/68 Pulse Oximetry 98 97 99 Intake & Output 09/16/18 09/17/18 09/17/18 18:59 06:59 18:59 Intake Total 170 / 170 240 / 240 Output Total 600 / 600 Balance 170 / 170 -360 / -360 Weight 97.6 kg Intake: IV 50 / 50 Oral 120 / 120 240 / 240 Output: Urine 600 / 600 Other: Date of Last Bowel Movement 09/17/18 # Bowel Movements 0 Narrative: GENERAL: Alert, NAD. SKIN: Warm and dry. HEAD: Normocephalic. EYES: No scleral icterus. No injection or drainage. NECK: Supple, trachea midline. No JVD or lymphadenopathy. CARDIOVASCULAR: Irreg Irreg without murmurs, gallops, or rubs. RESPIRATORY: Breath sounds equal bilaterally. No accessory muscle use. GASTROINTESTINAL: Abdomen soft, non-tender, nondistended. MUSCULOSKELETAL: No cyanosis, or edema. BACK: Nontender without obvious deformity. No CVA tenderness. Results Procedures completed during hospitalization: Echo 09/16/2018 Normal left ventricular size. Wall thickness is normal. No regional wall motion abnormalities are present. The pulmonary valve is not well visualized. The left ventricular systolic function is normal with an estimated ejection fraction in the range of 60-65%. . Labs on day of discharge: Labs from last 24 hours 09/17/18 09/17/18 09/17/18 04:35 04:35 04:35 PT 17.5 H INR 1.7 Sodium 141 Potassium 3.9 Chloride 108 H Carbon Dioxide 21.9 Anion Gap 11 BUN 15 Creatinine 0.90 Estimated GFR 88 L Random Glucose 84 Hemoglobin A1c Pending Calcium 8.6 Phosphorus 4.7 Magnesium 1.6 Total Bilirubin 3.0 H AST 58 H ALT 31 Alkaline Phosphatase 122 H Total Protein 7.0 D Albumin 2.6 L TSH 2.570 Free T4 1.29 Urine Opiates Screen Ur Barbiturates Screen Ur Amphetamines Screen U Benzodiazepines Scrn Urine Cocaine Screen U Cannabinoids Screen 09/16/18 16:30 PT INR Sodium Potassium Chloride Carbon Dioxide Anion Gap BUN Creatinine Estimated GFR Random Glucose Hemoglobin A1c Calcium Phosphorus Magnesium Total Bilirubin AST ALT Alkaline Phosphatase Total Protein Albumin TSH Free T4 Urine Opiates Screen Neg Ur Barbiturates Screen Neg Ur Amphetamines Screen Neg U Benzodiazepines Scrn Neg Urine Cocaine Screen Neg U Cannabinoids Screen Neg Discharge Plan - Discharge Disposition Patient Disposition: 01 Discharge Home - Discharge Condition Condition: Good - Discharge Order Discharge Orders: Discharge Order (Routine); Ordered 09/17/18 Ordered By: Katelyn Roca - Discharge Details Anticipated Discharge Date: 09/17/18 - Physicians Team Primary Care Provider: Estela Preciado Attending Provider: Katelyn Roca
[2018-09-17] MEDS: Sod Chloride 0.9% Inj 1,000 ML IV.CONT SCH (16:18)
[2018-09-17] MEDS ORDERED: Metoprolol Tartrate 50 MG Tablet PO SCH (21:00)
== END 2018-09-17 15:55 | disposition home or self-care (01) ==
LOC: NEDAMB 17:17 → NEDA 09-16 03:42 → NEDH 09-16 12:13 → N04 09-16 16:30
PROVIDERS: ADMIT Hospitalist; ATTEND Hospitalist